=== PATIENT | female | born 1980 | race Caucasian/White ===

== ENCOUNTER 2016-10-22 13:48 | Emergency (ER) | payer BC ==
[~2016-10-22] VITALS: Ht 170.2 cm; Wt 54.4 kg
[~2016-10-22 13:48] MED LIST: BACTRIM DS 8001 TAB PO; FIORICET 325 MG1 TAB PO; NAPROXEN SODIU500 MG PO; PERCOCET 5/3251 EACH PO; RELPAX40 MG PO; TOPAMAX50 MG PO; ZITHROMAX Z PA250 MG PO
[2016-10-22] MEDS ORDERED: XYZAL5 MG PO (14:22)
[2016-10-22] MEDS ORDERED: SINGULAIR10 MG PO (14:22)
--- NOTE | 2016-10-22 14:23 | Urgent Treatment Center Report ---
History of Present Issue Date/Time Seen by Provider 10/22/16 1422 Visit Reason Pt arrived: Presenting Problem: Location if Accident: Onset of symptoms date/time:/ or onset unknown for: Have you (or family members/close friends) recently traveled outside the [place]? If Yes, where/when: Have you had exposure to infectious disease within the past month? TB? Other? Specify: Source patient, RN notes reviewed Exam Limitations no limitations Comment Pain and swelling of right outer ear X 2 days. No fever. Now has swelling behind ear, pain radiating down neck, and swelling in face. ALLERGIES Coded Allergies: No Known Allergies (10/22/16) Home Medications Active Scripts [id number] (Fioricet ([id number])) 1-2 TAB PO Q4-6H PRN #15 Prov: 05/28/11 Oxycodone 5MG/[id number] (Oxycodone-Acetaminophen 5-325) 1 TAB PO Q6HP PRN severe pain #7 TAB Prov: 12/06/13 Reported Medications Topiramate (Topamax) 50 MG PO DAILY LEVOCETIRIZINE DIHYDROCHLORIDE (Xyzal) 5 MG PO DAILY Montelukast Sodium (Singulair) 10 MG PO QHS History Medical History General CAD? No Angina: No DC: No Hypertension? No Hyperlipidemia? No CHF? No DVT? No PE? No COPD? No Asthma? Yes Anemia? No GERD? No Gastric ulcers? No GI Bleed? No Hernia? No Thyroid Problems? No Hypothyroidism? No CVA? No Seizures? No Diabetes? No Renal Insuffiency? No UTI? No Stones? No BPH? No GB Disease: No Nephritic Syndrome? No Asplenia? No Hepatitis? No Sickle Cell Disease? No Arthritis? No Migraines? No Cataracts? No Glaucoma? No MRSA? No HIV? No TB? No Anxiety? No Depression? No Cancer? No More? No Immunization HX DT/Tetanus > 10 YRS Pneumonia NEVER Surgical Hx Previous Surgery?Y T & A AGE 5 X 2 COLPOSCOPY CONE BX Family History Family HX Diabetes Yes CAD Yes Hypertension Yes Hyperlipidemia Yes Cancer Yes TB No Social History Alcohol Alcohol: No Review of Systems All Other Systems Reviewed and Negative ENT see HPI, ear pain. Physical Exam Vital Signs Vital Signs Date Time Temp Pulse Resp B/P Pulse O2 O2 Flow FiO2 Ox Delivery Rate 10/22 1418 97.8 84 18 126/72 99 General Appearance normal appearance, no apparent distress Ear, Nose, Throat abscess/edema right outer ear Neck lymphadenopathy (R) Respiratory Status No: respiratory distress, trachea midline, chest symmetrical. Lung Sounds bilateral: normal breath sounds, lungs clear. Cardiovascular normal exam, regular rate/rhythm, no peripheral edema, no gallop, no JVD, no murmur, no rub Extremities non-tender, normal range of motion, normal inspection, normal capillary refill Neurologic alert, normal exam, oriented x 3 Mental status normal mood/affect Medical Decision Making LABS/Meds/Orders Pt receiving controlled substance in ED? No Departure Departure Time of Disposition 1428 Disposition DC Home or Self Care(routine) Clinical Impression Primary Impression: Abscess of right ear canal Condition STABLE Referrals Juan BENJAMIN,Santos (Family) Patient Instructions DI for Skin Abscess Additional Instructions warm compresses Discharge Counseling Counseled pt/family regarding diagnosis, medications/RX, home care, follow up needs Prescriptions Current Visit Scripts SULFAMETHOXAZOLE W/TRIMETHOPRI (Bactrim Ds Tab) 1 TABLET PO BID #20 TAB at 1430
--- NOTE | 2016-10-22 14:23 | Urgent Treatment Center Report ---
History of Present Issue Date/Time Seen by Provider 10/22/16 1422 Visit Reason Pt arrived: Presenting Problem: Location if Accident: Onset of symptoms date/time:/ or onset unknown for: Have you (or family members/close friends) recently traveled outside the [place]? If Yes, where/when: Have you had exposure to infectious disease within the past month? TB? Other? Specify: Source patient, RN notes reviewed Exam Limitations no limitations Comment Pain and swelling of right outer ear X 2 days. No fever. Now has swelling behind ear, pain radiating down neck, and swelling in face. ALLERGIES Coded Allergies: No Known Allergies (10/22/16) Home Medications Active Scripts Krnllqyaoueud-Kioe-Rlqhgjsnny (Fioricet ([id number])) 1-2 TAB PO Q4-6H PRN #15 Prov: 05/28/11 Oxycodone 5MG/Mhxvesrmcdx492uh (Oxycodone-Acetaminophen 5-325) 1 TAB PO Q6HP PRN severe pain #7 TAB Prov: 12/06/13 Reported Medications Topiramate (Topamax) 50 MG PO DAILY LEVOCETIRIZINE DIHYDROCHLORIDE (Xyzal) 5 MG PO DAILY Montelukast Sodium (Singulair) 10 MG PO QHS History Medical History General CAD? No Angina: No NE: No Hypertension? No Hyperlipidemia? No CHF? No DVT? No PE? No COPD? No Asthma? Yes Anemia? No GERD? No Gastric ulcers? No GI Bleed? No Hernia? No Thyroid Problems? No Hypothyroidism? No CVA? No Seizures? No Diabetes? No Renal Insuffiency? No UTI? No Stones? No BPH? No GB Disease: No Nephritic Syndrome? No Asplenia? No Hepatitis? No Sickle Cell Disease? No Arthritis? No Migraines? No Cataracts? No Glaucoma? No MRSA? No HIV? No TB? No Anxiety? No Depression? No Cancer? No More? No Immunization HX DT/Tetanus > 10 YRS Pneumonia NEVER Surgical Hx Previous Surgery?Y T & A AGE 5 X 2 COLPOSCOPY CONE BX Family History Family HX Diabetes Yes CAD Yes Hypertension Yes Hyperlipidemia Yes Cancer Yes TB No Social History Alcohol Alcohol: No Review of Systems All Other Systems Reviewed and Negative ENT see HPI, ear pain. Physical Exam Vital Signs Vital Signs Date Time Temp Pulse Resp B/P Pulse O2 O2 Flow FiO2 Ox Delivery Rate 10/22 1418 97.8 84 18 126/72 99 General Appearance normal appearance, no apparent distress Ear, Nose, Throat abscess/edema right outer ear Neck lymphadenopathy (R) Respiratory Status No: respiratory distress, trachea midline, chest symmetrical. Lung Sounds bilateral: normal breath sounds, lungs clear. Cardiovascular normal exam, regular rate/rhythm, no peripheral edema, no gallop, no JVD, no murmur, no rub Extremities non-tender, normal range of motion, normal inspection, normal capillary refill Neurologic alert, normal exam, oriented x 3 Mental status normal mood/affect Medical Decision Making LABS/Meds/Orders Pt receiving controlled substance in ED? No Departure Departure Time of Disposition 1428 Disposition DC Home or Self Care(routine) Clinical Impression Primary Impression: Abscess of right ear canal Condition STABLE Referrals Juan BENJAMIN,Santos (Family) Patient Instructions DI for Skin Abscess Additional Instructions warm compresses Discharge Counseling Counseled pt/family regarding diagnosis, medications/RX, home care, follow up needs Prescriptions Current Visit Scripts SULFAMETHOXAZOLE W/TRIMETHOPRI (Bactrim Ds Tab) 1 TABLET PO BID #20 TAB at 1430
[2016-10-22] MEDS ORDERED: BACTRIM DS 8001 TA1 PO (14:29)
[2016-10-22 14:51] VITALS: BP 126/72
== END 2016-10-22 14:51 | disposition home or self-care (01) ==
LOC: UTC 13:48
DX: H66.41 Suppurative otitis media, unspecified, right ear (principal); J45.909 Unspecified asthma, uncomplicated; Z79.899 Other long term (current) drug therapy